=== PATIENT | male | born 1940 | race Caucasian/White ===

== ENCOUNTER → 2017-06-12 | Outpatient (CLI) | payer MEDICARE, OTHER ==
[~2017-06-12] VITALS: Ht 190.5 cm; Wt 93.5 kg
[~2017-06-12] MED LIST: DUTA.5 PO; LISI-660 PO
[2017-06-12 12:33] VITALS: BP 136/92
== END | disposition home or self-care (01) ==
LOC: SRCNTR 12:18
PROVIDERS: ATTEND Internal Medicine Critical Care Medicine
DX: B38.1 Chronic pulmonary coccidioidomycosis (principal); C18.9 Malignant neoplasm of colon, unspecified; C92.10 Chronic myeloid leukemia, BCR/ABL-positive, not having achieved remission; Z85.850 Personal history of malignant neoplasm of thyroid
CPT/HCPCS: G0463

== ENCOUNTER → 2017-09-04 | Outpatient (CLI) | payer MEDICARE, OTHER ==
[~2017-09-04] VITALS: Ht 190.5 cm; Wt 93.5 kg
[2017-09-04 12:49] VITALS: BP 157/95
== END | disposition home or self-care (01) ==
LOC: SRCNTR 12:30
PROVIDERS: ATTEND Internal Medicine Critical Care Medicine
DX: B38.9 Coccidioidomycosis, unspecified (principal); C92.10 Chronic myeloid leukemia, BCR/ABL-positive, not having achieved remission; C18.9 Malignant neoplasm of colon, unspecified; Z85.850 Personal history of malignant neoplasm of thyroid
CPT/HCPCS: G0463

== ENCOUNTER → 2017-12-09 | Outpatient (CLI) | payer MEDICARE, OTHER ==
[~2017-12-09] VITALS: Ht 190.5 cm; Wt 95.0 kg
[2017-12-09 13:39] VITALS: BP 158/96
== END | disposition home or self-care (01) ==
LOC: SRCNTR 13:34
PROVIDERS: ATTEND Internal Medicine Critical Care Medicine
DX: B38.9 Coccidioidomycosis, unspecified (principal); C92.10 Chronic myeloid leukemia, BCR/ABL-positive, not having achieved remission; Z85.038 Personal history of other malignant neoplasm of large intestine; Z85.850 Personal history of malignant neoplasm of thyroid
CPT/HCPCS: G0463

== ENCOUNTER → 2018-03-18 | Outpatient (CLI) | payer MEDICARE, OTHER ==
[~2018-03-18] VITALS: Ht 190.5 cm; Wt 92.5 kg
[~2018-03-18] MED LIST changes: +IMAT100T PO; +LISI-662 PO
[2018-03-18 15:02] VITALS: BP 151/92
== END | disposition home or self-care (01) ==
LOC: SRCNTR 14:04
PROVIDERS: ATTEND Internal Medicine Critical Care Medicine
DX: B38.9 Coccidioidomycosis, unspecified (principal); C18.9 Malignant neoplasm of colon, unspecified; C92.10 Chronic myeloid leukemia, BCR/ABL-positive, not having achieved remission
CPT/HCPCS: G0463

== ENCOUNTER → 2019-03-17 | Outpatient (CLI) | payer MEDICARE, OTHER ==
[~2019-03-17] VITALS: Ht 190.5 cm; Wt 89.5 kg
[~2019-03-17] MED LIST changes: +AMLO5TAB9 PO; +EMPA25TA PO; +FLUC200T PO; +LEVO125 PO; -LISI-660 PO; +METF-806 PO; +METO200T PO
[2019-03-17 10:10] VITALS: BP 128/81
== END | disposition home or self-care (01) ==
LOC: SRCNTR 10:08
PROVIDERS: ATTEND Internal Medicine Critical Care Medicine
DX: B38.9 Coccidioidomycosis, unspecified (principal); C18.9 Malignant neoplasm of colon, unspecified; C73 Malignant neoplasm of thyroid gland; C92.10 Chronic myeloid leukemia, BCR/ABL-positive, not having achieved remission
CPT/HCPCS: G0463

== ENCOUNTER → 2019-10-15 | Outpatient (CLI) | payer MEDICARE, OTHER ==
[~2019-10-15] MED LIST changes: +AMLO-257 PO; -AMLO5TAB9 PO
== END | disposition home or self-care (01) ==
LOC: SRCNTR 11:02
PROVIDERS: ATTEND Internal Medicine Critical Care Medicine
DX: B38.9 Coccidioidomycosis, unspecified (principal); C92.10 Chronic myeloid leukemia, BCR/ABL-positive, not having achieved remission; E89.0 Postprocedural hypothyroidism; Z85.850 Personal history of malignant neoplasm of thyroid; Z88.8 Allergy status to other drugs, medicaments and biological substances; Z79.899 Other long term (current) drug therapy; Z85.038 Personal history of other malignant neoplasm of large intestine
CPT/HCPCS: Q3014

== ENCOUNTER → 2020-02-18 | Outpatient (CLI) | payer MEDICARE, OTHER ==
[~2020-02-18] VITALS: Ht 190.5 cm; Wt 92.0 kg
[2020-02-18 11:21] VITALS: BP 118/69
== END | disposition home or self-care (01) ==
LOC: SRCNTR 10:36
PROVIDERS: ATTEND Internal Medicine Critical Care Medicine
DX: C92.10 Chronic myeloid leukemia, BCR/ABL-positive, not having achieved remission (principal); C18.2 Malignant neoplasm of ascending colon; B38.9 Coccidioidomycosis, unspecified; E89.0 Postprocedural hypothyroidism; Z85.850 Personal history of malignant neoplasm of thyroid; Z90.49 Acquired absence of other specified parts of digestive tract
CPT/HCPCS: G0463

== ENCOUNTER → 2020-09-09 | Outpatient (CLI) | payer MEDICARE, OTHER ==
[~2020-09-09] VITALS: Ht 190.5 cm; Wt 90.0 kg
[~2020-09-09] MED LIST changes: -LISI-662 PO; +LISI-894 PO
[2020-09-09 11:17] VITALS: BP 123/70
== END | disposition home or self-care (01) ==
LOC: SRCNTR 10:56
PROVIDERS: ATTEND Internal Medicine Critical Care Medicine
DX: C92.10 Chronic myeloid leukemia, BCR/ABL-positive, not having achieved remission (principal); C18.9 Malignant neoplasm of colon, unspecified; K76.0 Fatty (change of) liver, not elsewhere classified; K57.30 Diverticulosis of large intestine without perforation or abscess without bleeding; E89.0 Postprocedural hypothyroidism; B38.89 Other forms of coccidioidomycosis
CPT/HCPCS: G0463

== ENCOUNTER → 2021-10-17 | Outpatient (CLI) | payer MEDICARE, OTHER ==
[~2021-10-17] VITALS: Ht 190.5 cm; Wt 88.3 kg
[~2021-10-17] MED LIST changes: -EMPA25TA PO; +EMPA25TA3 PO; -FLUC200T PO; +FLUC200T85 PO
[2021-10-17 11:59] VITALS: BP 120/74
== END | disposition home or self-care (01) ==
LOC: SRCNTR 10:36
PROVIDERS: ATTEND Internal Medicine Critical Care Medicine
DX: K76.0 Fatty (change of) liver, not elsewhere classified (principal); Z09 Encounter for follow-up examination after completed treatment for conditions other than malignant neoplasm; N40.0 Benign prostatic hyperplasia without lower urinary tract symptoms; K57.30 Diverticulosis of large intestine without perforation or abscess without bleeding; C18.9 Malignant neoplasm of colon, unspecified; C92.10 Chronic myeloid leukemia, BCR/ABL-positive, not having achieved remission; Z90.49 Acquired absence of other specified parts of digestive tract
CPT/HCPCS: G0463

== ENCOUNTER → 2022-01-01 | Outpatient (CLI) | payer MEDICARE, OTHER ==
[~2022-01-01] VITALS: Ht 190.5 cm; Wt 90.0 kg
[2022-01-01 12:15] VITALS: BP 143/94
== END | disposition home or self-care (01) ==
LOC: SRCNTR 10:32
PROVIDERS: ATTEND Internal Medicine Pulmonary Disease
DX: K76.0 Fatty (change of) liver, not elsewhere classified (principal); K57.30 Diverticulosis of large intestine without perforation or abscess without bleeding; N40.0 Benign prostatic hyperplasia without lower urinary tract symptoms; R91.1 Solitary pulmonary nodule; E89.0 Postprocedural hypothyroidism; Z90.49 Acquired absence of other specified parts of digestive tract
CPT/HCPCS: G0463